=== PATIENT | male | born 1945 | race Caucasian/White ===

== ENCOUNTER 2020-12-16 10:36 | Day surgery (SDC) | payer MEDICARE, OTHER, SELFPAY ==
[2020-12-11 09:02] VITALS: BMI 25.0
[2020-12-16 10:46] VITALS: BP 149/83; PULSE 88; RESP 16; TEMP 36.7; O2SAT 98
--- NOTE | 2020-12-16 11:04 | HO.ANESPROP2 ---
[facility] Past Medical History Medical History COVID-19 vaccine administered History of MRSA infection History of prostate cancer HTN (hypertension) Hx of renal calculi Sinus pressure Surgical History Surgical History H/O colonoscopy History of colon resection Hx of radical prostatectomy Hx of tonsillectomy Social History Social History Are you a primary career education teacher to a significant other at home: No Do you presently have visiting nurse or other home services: No Patient Tobacco Use Status: Former Tobacco user Quit Date: 1969 Tobacco use type: Cigarette Use of substances other than those prescribed or required for medical reasons: No Have you been hit, kicked, punched, or otherwise hurt by someone within the past year? If so, by whom?: No Are you DNR?: No Advance Directives Information Provided: No Recently lost weight without trying: No Eating poorly because of decreased appetite: No Nutrition Risks: Surgical patient >75years Poor oral hygiene: No (upper partial) Meds Allergies Allergy/AdvReac Type Severity Reaction Status Date / Time No Known Allergies Allergy Verified 12/16/20 10:42 Home Medications Medication Instructions Recorded Confirmed Last Taken Type amlodipine-benazepril 1 cap PO DAILY 12/11/20 12/11/20 Unknown History cholecalciferol (vitamin D3) 25 mcg PO DAILY 12/11/20 12/11/20 Unknown History [Vitamin D3] cyanocobalamin (vitamin B-12) 100 mcg PO DAILY 12/11/20 12/11/20 Unknown History [Vitamin B-12] fluticasone propionate [Flonase] 1 spray INTRANASAL DAILY 12/11/20 12/11/20 Unknown History Exam Exam Date and Time: December 16, 2020 110 Height,Weight and Vital Signs: Height 6 ft 2 in Weight 88.451 kg Last Vital Signs Temp 98.1 F 12/16/20 10:46 Pulse 88 12/16/20 10:46 Resp 16 12/16/20 10:46 BP 149/83 H 12/16/20 10:46 Pulse Ox 98 12/16/20 10:46 Airway Mallampati Class: III TM Dist: >3cm Neck ROM: Full Loose/Missing/Broken Teeth: No Heart: RRR Lungs: CTA Assessment and Plan Assessment Anesthesia Assessment: Anesthesia Plan Discussed and Chart Reviewed Final Anesthetic Review NPO: Yes ASA Class: III Final Preanesthetic Review: Meds/Allgs Chart Reviewed, Consent Obtained/Reviewed and Anes Risks/Benef Reviewed Patient Risk: Intermediate Procedure Risk: Low Anesthetic Plan Anesthetic Plan: MAC: Disposition: Standard PACU
--- NOTE | 2020-12-16 11:22 | MHC.SHP ---
Pre-Procedural Eval Section A Date of Service: 12/16/20 Section B Chief Complaint: screening Details of Present Illness: abdominal pain and screening Relevant Family History (Specify if Yes): No Relevant Social History: None Present Medications: see Short Stay Collaborative assessment Medical History: Significant History (see h&p no changes) Allergies: Allergies Allergy/AdvReac Type Severity Reaction Status Date / Time No Known Allergies Allergy Verified 12/16/20 10:42 Review of Systems Sugical H&P ROS: Negative: Constitution, Cardiovascular, Respiratory, Neurological, Psychiatric, Hem-Onc, Allergic/Immunologic, Gastrointestinal, Genitourinary, Musculoskeletal, Integumentary, Endocrine and Eyes/Ears/Nose/Throat Exam Surgical H&P Exam: Normal: HEENT, Normal: Heart, Normal: Lungs, Normal: Extremities, Normal: Abdomen, Normal: Skin and Normal: Neurological Plan Diagnosis/Plan: Unchanged I have reviewed the history and physical and performed a pertinent physical examination on my patient. No changes have occurred unless specified.
[2020-12-16 12:10] VITALS: BP 119/64; PULSE 76; RESP 18; TEMP 36.3; O2SAT 99
--- NOTE | 2020-12-16 12:14 | P.BOP_ITS ---
Brief Operative Note Date of Service: 12/16/20 Pre-op diagnosis: screening, abd pain Post-op diagnosis: same (colon polyps) Procedure: EGD, colon Surgeon: Franklin Correa Anesthesia: MAC Was an [employer] Person used for this Procedure?: No Estimated blood loss (mL): 5 Pathology: other (bxs duodenum, antrum, egj, polyps x3) Condition: stable Disposition: PACU
[2020-12-16 12:25] VITALS: BP 119/64; PULSE 72; RESP 17; TEMP 36.3; O2SAT 97
--- NOTE | 2020-12-16 12:30 | OP_ITS ---
SURGEON: Franklin Correa MD INDICATIONS: 1. Colon cancer screening. 2. Abdominal pain and gastroesophageal reflux disease. PREOPERATIVE DIAGNOSIS: POSTOPERATIVE DIAGNOSIS: PROCEDURE PERFORMED: Upper endoscopy with biopsy, colonoscopy to the cecum with snare polypectomy. ESTIMATED BLOOD LOSS: COMPLICATIONS: ANESTHESIA: ASSISTANTS: SPECIMENS: MEDICATIONS: Monitored anesthesia care. DESCRIPTION OF PROCEDURE: History and physical performed. The risks and benefits of the procedure were explained to the patient. Informed consent was obtained. The patient was placed in left lateral decubitus position. The Olympus video gastroscope was introduced into the esophagus, stomach, and duodenum. Examination was performed and the scope was removed. He was repositioned for colonoscopy. A digital rectal exam was performed and was found to be normal. The Olympus pediatric video colonoscope was introduced into the rectum and advanced to the cecum without difficulty. The cecum was identified by transillumination, palpation, and identification of ileocecal valve. Examination was performed and the scope was removed. He tolerated both procedures well and was returned to recovery area in stable condition. FINDINGS: UPPER ENDOSCOPY: Esophagus: The esophagus was normal. This was biopsied. Stomach: The stomach showed no evidence of masses, ulcers, or polyps. Antral biopsies were obtained to rule out H pylori. Duodenum: The bulb and second portion were normal. Biopsies were obtained from the second portion. COLONOSCOPY: The terminal ileum was not examined. There were 3 polyps, which were removed with a snare. These were located at the hepatic flexure, at 70 cm, and 50 cm. There was Danica ink present from the site of a previous polypectomy. No other polyps were identified. There was mild sigmoid diverticulosis. Retroflexed examination was normal. IMPRESSION: 1. Normal upper endoscopy. 2. Colon polyps. RECOMMENDATION: Follow up the biopsy results. MD BE Márquez/RONEY / [id number] [email or web address]
== END 2020-12-16 12:52 | disposition home or self-care (01) ==
PROVIDERS: PCP Internal Medicine; Visit Provider Internal Medicine Gastroenterology
PROC: (CPT 45385; principal; 2020-12-16 11:30)
DX: Z12.11 Encounter for screening for malignant neoplasm of colon (principal); D12.3 Benign neoplasm of transverse colon; D12.4 Benign neoplasm of descending colon; D12.5 Benign neoplasm of sigmoid colon; K57.30 Diverticulosis of large intestine without perforation or abscess without bleeding; K29.80 Duodenitis without bleeding; I10 Essential (primary) hypertension; J32.9 Chronic sinusitis, unspecified; Z85.46 Personal history of malignant neoplasm of prostate; Z86.14 Personal history of Methicillin resistant Staphylococcus aureus infection; Z87.442 Personal history of urinary calculi; Z87.891 Personal history of nicotine dependence; Z79.899 Other long term (current) drug therapy; Z79.51 Long term (current) use of inhaled steroids
CPT/HCPCS: 45385; 43239; 88305; 88342